=== PATIENT | male | born 1975 | race African-American/Black ===

== ENCOUNTER 2022-12-29 16:20 | Emergency (ER) | payer MEDICAID | END 2022-12-29 17:50 | disposition left against medical advice (07) | LOC: ER 16:24 | DX: Z53.21 Procedure and treatment not carried out due to patient leaving prior to being seen by health care provider (principal) ==

== ENCOUNTER 2023-05-17 03:28 | Emergency (ER) | payer OTHER ==
[~2023-05-17] VITALS: Ht 175.3 cm; Wt 90.7 kg
[2023-05-17 03:55] VITALS: BP 133/88; TEMP 98; O2SAT 99
[2023-05-17] MEDS ORDERED: ACETAMINOPHEN ES 500 MG TABLET ONE (04:07)
[2023-05-17] MEDS ORDERED: ACETAMINOPHEN ES 500 MG TABLET PO ONE (04:30)
== END 2023-05-17 04:09 | disposition home or self-care (01) ==
LOC: ER 03:28
DX: M79.662 Pain in left lower leg (principal); F20.9 Schizophrenia, unspecified

== ENCOUNTER 2023-05-19 03:03 | Emergency (ER) | payer OTHER ==
[~2023-05-19] VITALS: Ht 170.2 cm; Wt 90.3 kg
[2023-05-19 03:34] VITALS: BP 145/104; TEMP 98.4; O2SAT 99
[2023-05-19] MEDS ORDERED: KETO10TA2 PO (03:46)
[2023-05-19] MEDS ORDERED: ACET-2030 PO (03:46)
[2023-05-19] MEDS ORDERED: ACETAMINOPHEN ES 500 MG TABLET ONE (03:47)
[2023-05-19] MEDS ORDERED: ACETAMINOPHEN ES 500 MG TABLET PO ONE (04:00)
== END 2023-05-19 03:52 | disposition home or self-care (01) ==
LOC: ER 03:18
DX: M79.671 Pain in right foot (principal); F20.9 Schizophrenia, unspecified; F17.200 Nicotine dependence, unspecified, uncomplicated